=== PATIENT | female | born 1950 | race Caucasian/White ===

== ENCOUNTER 2021-06-28 23:55 | Emergency (ER) | payer OTHER ==
[~2021-06-28] VITALS: Ht 142.2 cm; Wt 64.0 kg
[2021-06-29] MEDS ORDERED: VISCOUS LIDOCAINE 2% 15 ML UDC PO ONE (02:45)
[2021-06-29] MEDS ORDERED: MAGNESIUM/ALUMINUM HYDROXIDE/SIMETHICONE 30ML UDC PO ONE (02:45)
[2021-06-29] MEDS ORDERED: CLONIDINE 0.2MG TABLET PO ONE (03:00)
[2021-06-29] MEDS ORDERED: AMLODIPINE 10MG TABLET PO ONE (03:00)
[2021-06-29 04:22] LABS: BASOPHILS % 0.2 % (0.0-2.0); EOSINOPHILS % 0.2 % (0.0-5.0); HEMATOCRIT. 40.5 % (36.0-48.0); HEMOGLOBIN. 13.2 g/dL (12.0-16.0); MEAN CORPUSCULAR HEMOGLOBIN 28.8 pg (28.0-32.0); MEAN CORPUSCULAR VOLUME 88.2 fL (81.0-99.0); MEAN PLATELET VOLUME 8.9 fl (7.4-10.4); MONOCYTES % 14.3 % (2.0-8.0); NEUTROPHILS % 52.3 % (40.0-76.0); PLATELET 183 x1000/uL (130-400); RED BLOOD CELL COUNT 4.59 mill/uL (4.2-5.4); RED CELL DISTRIBUTION WIDTH 14.5 % (11.6-14.6)
[2021-06-29 04:37] LABS: CHLORIDE 102 mEq/L (98-107)
[2021-06-29] MEDS ORDERED: ATENOLOL 25MG TABLET PO STA (07:33)
[2021-06-29] MEDS ORDERED: AMLODIPINE 10MG TABLET PO NR (11:05)
[2021-06-29] MEDS ORDERED: ATEN50TA MT (13:34)
[2021-06-29 14:34] VITALS: BP 138/68
== END 2021-06-29 14:34 | disposition home or self-care (01) ==
LOC: ER 23:55
DX: R07.89 Other chest pain (principal); I10 Essential (primary) hypertension
CPT/HCPCS: 36415; 71045; 80053; 83880; 84484; 85025; 93005; 99285